=== PATIENT | female | born 1965 | race American Indian/Alaskan Native ===

== ENCOUNTER 2020-10-08 12:58 | Outpatient (CLI) | payer BC ==
--- NOTE | 2020-10-08 17:47 | Magnetic Resonance Report ---
MR lumbar spine wo con INDICATION / CLINICAL INFORMATION: 55 years Female; LUMBAR BACK PAIN M54.5. TECHNIQUE: Multisequence, multiplanar images of the lumbar spine were obtained. COMPARISON: None available. FINDINGS: ALIGNMENT: There is no significant spondylolisthesis or scoliosis of the MR spine. VERTEBRAE:This mild disc desiccation from L3-4 and L5-S1. There is no significant edema of the lumbar vertebral bodies. VISUALIZED SPINAL CORD: The motion degrades the image quality at. However, the distal spinal cord oneyda ears to demonstrate appropriate signal intensity and terminates at L1. [id number] ANALYSIS: L1-2: No significant abnormality. L2-3: No significant abnormality. L3-4: There is a broad-based left foraminal and far lateral disc protrusion at L3-L4 which encroaches on the exiting left L3 nerve root sheath at. There is also small left-sided synovial cyst which cont ributes to mild degree of spinal stenosis and encroachment on the bilateral recess. Mild foraminal na rrowing is seen on the right. L4-5: The broad-based disc bulge and facet joint hypertrophy result in mild degree of spinal stenosis at. There is a left foraminal disc bulge and annular tear along with facet joint hypertrophy which m ildly encroach on the exiting left L4 nerve root sheath at. Milder narrowing is seen on the right. L5-S1: This broad-based central disc bulge which slightly flattens the ventral thecal sac at. There i s mild to moderate foraminal narrowing, greater on the right. PARASPINAL SOFT TISSUES: No significant abnormality. ADDITIONAL FINDINGS: No epidural collections are identified. IMPRESSION: 1. There is a left foraminal and far lateral disc protrusion at L3-4 which mildly displaces the exiti ng left L3 nerve root sheath. 2. There is mild spinal stenosis at L4-5. Additionally, this left foraminal disc bulge and annular te ar with mild encroachment on the exiting left L4 nerve root sheath. 3. The diffuse a disc bulge and facet joint hypertrophy at L5-S1 result in mild to moderate neural fo raminal narrowing bilaterally. Signer Name: Richardson Vázquez MD Signed: 10/08/2020 5:43 PM Workstation Name: [id number]
== END 2020-10-08 12:59 | disposition home or self-care (01) ==
LOC: MRI 12:58
PROVIDERS: ATTEND Physical Medicine & Rehabilitation
DX: M51.37 Other intervertebral disc degeneration, lumbosacral region (principal); M48.07 Spinal stenosis, lumbosacral region; M47.817 Spondylosis without myelopathy or radiculopathy, lumbosacral region
CPT/HCPCS: 72148

== ENCOUNTER 2021-01-04 08:15 | Outpatient (CLI) | payer BC ==
--- NOTE | 2021-01-04 10:04 | Mammography Report ---
BILATERAL DIGITAL SCREENING MAMMOGRAM WITH CAD HISTORY: Screening mammogram. TECHNIQUE: Routine digital mammographic imaging performed. This examination was interpreted with lupe don benefit of Computer-aided Detection analysis. COMPARISON: 05/21/2015, 09/17/2012. FINDINGS: Breast Density: predominantly fatty breast parenchymal pattern. Digital CC and MLO views demonstrate no mammographic evidence of malignancy. IMPRESSION: No mammographic evidence of malignancy. If the clinical examination remains stable, recommend bilate ral mammogram in approximately one year. BIRADS 1: Negative. FURTHER INFORMATION: According to the [employer], yearly mammograms are recommend ed starting at age 40 and continuing as long as a woman is in good health. Clinical Breast Exams shou ld be part of a periodic health exam-about every 3 years for women in their 20s and 30s and every yea r for women 40 and over. Breast self exam is an option for women starting in their 20s. Any breast ch estefania noted on a breast self exam should be reported promptly to the patient's healthcare provider. Br east MRI is recommended for women with an approximately 20-25% or greater lifetime risk of breast can cer, including women with a strong family history of breast or ovarian cancer and women who have been treated for Hodgkin's disease. A negative Mammography report should not discourage follow up or biopsy of a clinically significant f inding and/or abnormality. Dense breast tissue may obscure small neoplasms. The patient will be entered into a reminder system with a target due date for the next screening mamm ogram. Signer Name: Richardson Gallagher MD Signed: 01/04/2021 10:00 AM Workstation Name: [id number]
--- NOTE | 2021-01-04 10:07 | Mammography Report ---
DEXA BONE DENSITY SCAN INDICATION: Postmenopausal. Osteopenia.. COMPARISON: None available. DEFINITIONS: BMD = Bone Mineral Density T-score = BMD related to mean peak bone mass of a young child (mean expressed in standard deviation) Z-score = age matched BMD is expressed in SD World Health Organization (WHO) diagnostic criteria Normal T score > -1 SD Osteopenia T score between -1 and -2.4 SD Osteoporosis T score -2.5 SD or below. LUMBAR SPINE (L1-L4): Bone mineral density (BMD) is 1.151 g/cm2. T-score is 0.9 (standard deviations of Young Adult mean). Z-score is 1.2 (standard deviations of Age Matched mean). LEFT FEMORAL NECK: Bone mineral density (BMD) is 1.115 g/cm2. T-score is 1.4 (standard deviations of Young Adult mean). Z-score is 1.1 (standard deviations of Age Matched mean). IMPRESSION: WHO Classification: Normal bone density. Signer Name: Richardson Gallagher MD Signed: 01/04/2021 10:03 AM Workstation Name: [id number]
== END 2021-01-04 08:16 | disposition home or self-care (01) ==
LOC: MAMMO 08:15
PROVIDERS: ATTEND Obstetrics & Gynecology
DX: Z12.31 Encounter for screening mammogram for malignant neoplasm of breast (principal); Z78.0 Asymptomatic menopausal state
CPT/HCPCS: 77067; 77080